=== PATIENT | male | born 1995 | race Caucasian/White ===

== ENCOUNTER 2017-11-08 12:35 | Emergency (ER) ==
[2017-11-08 12:42] VITALS: BP 137/78; TEMP 99; BMI 34.4
[2017-11-08 13:30] LABS: ALBUMIN/GLOBULIN RATIO 1.18; ANION GAP 16.6; BILIRUBIN,TOTAL 0.61 mg/dL (0.00-1.20); BUN/CREATININE RATIO 12.64; CALCIUM 9.3 mg/dL (8.2-10.2); CREATININE 0.87 mg/dL (0.60-1.10); POTASSIUM 3.6 mmol/L (3.5-5.1); TOTAL PROTEIN 7.4 g/dL (6.4-8.2)
[2017-11-08 13:44] LABS: FLU INTERNAL QC INTERNAL QC VALID; RAPID FLU A NEGATIVE (NEGATIVE); RAPID FLU B NEGATIVE (NEGATIVE)
--- NOTE | 2017-11-08 13:46 | DI ---
EXAM: Chest two views HISTORY: Cough COMPARISON: None TECHNIQUE: Two views of the chest were performed FINDINGS: The lungs are clear. There is no pleural effusion or pneumothorax. The heart is normal i n size. The mediastinal contour is normal. There are no acute abnormalities of the bones. IMPRESSION: No acute cardiopulmonary process.
--- NOTE | 2017-11-08 13:56 | CT ---
EXAM: CT abdomen pelvis without contrast HISTORY: Left-sided abdominal pain with nausea/vomiting since yesterday COMPARISON: 09/21/2014 TECHNIQUE: CT abdomen pelvis performed without intravenous contrast. Coronal and sagittal reformatt ed images obtained. FINDINGS: Lung bases clear. No free air. No acute abnormalities of the bones. Heart normal in siz e. Liver appears normal. Evaluation organ parenchyma limited without contrast. Liver appears pete l. Gallbladder appears normal. Pancreas appears normal. Spleen appears normal. Adrenals appear no rmal. Kidneys appear normal. Aorta normal in caliber. Bladder unremarkable. Prostate normal in si ze. No lymphadenopathy or ascites. Minimal fat-containing umbilical hernia. Stomach appears normal . No dilated loops small bowel. Appendix appears normal. Increased submucosal fat deposition in th e right and transverse colon. No inflammatory stranding identified in the abdomen or pelvis. IMPRESSION: 1. No acute abnormality identified in the abdomen or pelvis. 2. Increased submucosal fat deposition in the right and transverse colon, a finding that can be seen in sequela of remote infection or inflammation, such as inflammatory bowel disease.
[2017-11-08 14:07] LABS: BASOPHILS # (AUTO) 0.1 K/uL (0-0.2); BASOPHILS % (AUTO) 0.8 % (0.0-3.0); EOSINOPHILS # (AUTO) 0.5 K/ul (0.0-0.7); EOSINOPHILS % (AUTO) 5.1 % (0.0-7.0); HEMATOCRIT 44.8 % (42.0-52.0); HEMOGLOBIN 15.9 g/dl (14.0-18.0); LYMPHOCYTES # (AUTO) 1.9 K/uL (0.60-3.4); LYMPHOCYTES % (AUTO) 21.3 (10.0-50.0); MEAN CORPUSCULAR HEMOGLOBIN 30.5 pg (27.0-31.0); MEAN CORPUSCULAR HGB CONC 35.5 (31.8-35.4); MONOCYTES # (AUTO) 0.8 K/uL (0.4-2.0); MONOCYTES % (AUTO) 9.3 (0-10); NEUTROPHILS # (AUTO) 5.5 K/ul (2.0-6.9); NEUTROPHILS % (AUTO) 62.5; PLATELET COUNT 216 10^3/uL (140-440); RED BLOOD COUNT 5.21 10^6/ul (4.70-6.10); WHITE BLOOD COUNT 8.82 K/ul (4.2-10.2)
--- NOTE | 2017-11-08 14:27 | ED.PDOC ---
General ED Provider: Dr. CHEIKH LONGO Chief Complaint: Nausea/Vomiting Stated Complaint: ABDOMINAL PAIN Time Seen by Physician: 12:38 Mode of Arrival: Walk-In Information Source: Patient Exam Limitations: No limitations Nursing and Triage Documentation Reviewed and Agree: Yes (SEEN WITH pritesh) GI Complaint Exam - Abdominal Pain Complaint/Exam Onset: Gradual Duration: presentx 1 day not active at the moment Symptoms Are: Resolved Initial Severity: Mild Current Severity: None Location of Pain: Diffuse Character: Reports: Aching Aggravating: Reports: None Alleviating: Reports: None Associated Signs and Symptoms: Reports: Cough. Denies: Diaphoresis, Fever, Chest pain, Dizziness, Back pain, Constipation, Blood in stool, Dysuria, Urinary frequency, Decreased urine output, Decreased appetite, Discharge, Nausea , Vomiting, Diarrhea, Decreased activity AAA Risk Factors: Reports: None Cardiac Risk Factors: Reports: None Testicular Torsion Risk Factors: Reports: None Surgical Obstruction Risk Factors: Reports: None Related Surgical History: Reports: None Abdominal Findings: Present: None Differential Diagnoses: Bowel Obstruction, Constipation, Gastroenteritis Review of Systems - Review Of Systems Constitutional: Reports: No symptoms Eyes: Reports: No symptoms Ears, Nose, Mouth, Throat: Reports: No symptoms Respiratory: Reports: No symptoms Cardiac: Reports: No symptoms GI: Reports: Abdominal pain, Vomiting : Reports: No symptoms Musculoskeletal: Reports: No symptoms Skin: Reports: No symptoms Neurological: Reports: No symptoms Endocrine: Reports: No symptoms Hematologic/Lymphatic: Reports: No symptoms All Other Systems: Reviewed and Negative Past Medical History - Past Medical History Previously Healthy: Yes Endocrine: Reports: None Cardiovascular: Reports: None Respiratory: Reports: None Hematological: Reports: None Gastrointestinal: Reports: None Genitourinary: Reports: None Neuro/Psych: Reports: None Musculoskeletal: Reports: None Cancer: Reports: None - Surgical History General Surgical History: Reports: None - Family History Family History: Reports: None - Social History Smoking Status: Current every day smoker, Heavy tobacco smoker Hx Substance Use: No Alcohol Screening: Occasionally Physical Exam - Physical Exam Appearance: Well-appearing, No pain distress, Well-nourished Eyes: AMARIS, EOMI, Conjunctiva clear ENT: Ears normal, Nose normal, Oropharynx normal Respiratory: Airway patent, Breath sounds clear, Breath sounds equal, Respirations nonlabored Cardiovascular: RRR, Pulses normal, No rub, No murmur GI/: Soft, Nontender, No masses, Bowel sounds normal, No Organomegaly Musculoskeletal: Normal strength, ROM intact, No edema, No calf tenderness Skin: Warm, Dry, Normal color Neurological: Sensation intact, Motor intact, Reflexes intact, Cranial nerves intact, Alert, Oriented Psychiatric: Affect appropriate, Mood appropriate Interpretation - Radiology Interpretation Radiology Interpretation By: Radiologist Radiology Results: No acute changes Critical Care Note - Critical Care Note Total Time (mins): 0 Course - Course Hematology/Chemistry: 11/08/17 13:00 11/08/17 13:00 Orders, Labs, Meds: Lab Review 11/08/17 11/08/17 11/08/17 13:00 13:00 13:14 WBC 8.82 RBC 5.21 Hgb 15.9 Hct 44.8 MCV 86.0 MCH 30.5 MCHC 35.5 H RDW Coeff of Rosalinda 12.4 Plt Count 216 Immature Gran % (Auto) 1.0 Neut % (Auto) 62.5 Lymph % (Auto) 21.3 [place] % (Auto) 9.3 Eos % (Auto) 5.1 Baso % (Auto) 0.8 Immature Gran # (Auto) 0.1 Neut # 5.5 Lymph # 1.9 [place] # 0.8 Eos # 0.5 Baso # 0.1 Sodium 142 Potassium 3.6 Chloride 105 Carbon Dioxide 24 Anion Gap 16.6 BUN 11 Creatinine 0.87 Estimated GFR (MDRD) 111.00 BUN/Creatinine Ratio 12.64 Glucose 100 Calcium 9.3 Total Bilirubin 0.61 AST 19 ALT 24 Alkaline Phosphatase 64 Total Protein 7.4 Albumin 4.0 Globulin 3.4 Albumin/Globulin Ratio 1.18 Influenza A (Rapid) Negative Influenza B (Rapid) Negative Orders Category Date Time Status CBC W/ AUTO DIFF Stat LAB 11/08/17 13:00 Completed COMPREHENSIVE METABOLIC PANEL Stat LAB 11/08/17 13:00 Completed MOLECULAR GROUP A STREP Stat LAB 11/08/17 13:14 Results RAPID FLU A/B Stat LAB 11/08/17 13:14 Completed STREP SCREEN Stat LAB 11/08/17 13:14 Results UA [URINALYSIS C & S IF INDICATED] Stat LAB 11/08/17 12:45 Uncollected CHEST, 2 VIEWS PA & LAT Stat RADS 11/08/17 12:[address] ABDOMEN/PELVIS WO CONTRAST Stat RADS 11/08/17 12:47 Completed Vital Signs: Temp Pulse Resp BP Pulse Ox 11/08/17 12:38 99 F 112 H 18 137/78 98 Departure - Departure Time of Disposition: 14:28 (copy of imagings and x ray given to pt and explianed while pritesh was present. no vomiting in the emergency room ) Disposition: HOME SELF-CARE Discharge Problem: Nausea, Vomiting Abdominal pain Qualifiers: Abdominal location: generalized Qualified Code(s): R10.84 - Generalized abdominal pain Instructions: Abdominal Pain (ED) Condition: Good Pt referred to PMD for follow-up: Yes Allergies/Adverse Reactions: Allergies Penicillins Adverse Reaction (Verified 11/08/17 12:37) Home Medications: Ambulatory Orders 1 [No Reported Medications] 07/07/14
== END 2017-11-08 14:35 | disposition home or self-care (01) ==
LOC: ED 12:35
DX: R11.2 Nausea with vomiting, unspecified (principal); R10.84 Generalized abdominal pain; R05 Cough; F17.210 Nicotine dependence, cigarettes, uncomplicated
CPT/HCPCS: 36415; 80053; 85025; 87651; 87804; 87880; 99283

== ENCOUNTER 2018-01-17 18:29 | Emergency (ER) ==
[2018-01-17 18:29] VITALS: BMI 34.4
[2018-01-17] MEDS ORDERED: DECADRON 4 MG/ML SDV IM STA (19:26)
--- NOTE | 2018-01-17 19:35 | ED.PDOC ---
General ED Provider: Dr. MARYSOL VIRGEN Chief Complaint: Sore Throat Stated Complaint: Thorat pain, ears hurting. no fver or chills Time Seen by Physician: 19:34 Mode of Arrival: Walk-In Information Source: Patient Nursing and Triage Documentation Reviewed and Agree: Yes Reviewed sepsis parameters & appropriate labs ordered?: No System Inflammatory Response Syndrome: Not Applicable Sepsis Protocol: For patient's 13 years and over: Temp is 96.8 and below OR 101 and greater Pulse >90 BPM Resp >20/minute Acutely Altered Mental Status Are patient's symptoms suggestive of a new infection, such as: -Pneumonia -Skin, Soft Tissue -Endocarditis -UTI -Bone, Joint Infection -Implantable Device -Acute Abdominal Infection -Wound Infection -Meningitis -Blood Stream Catheter Infection -Unknown EENT Complaint Exam - Throat Complaint/Exam Symptoms Are: Still present Timimg: Constant Initial Severity: Moderate Current Severity: Moderate Aggravating: Reports: Eating Alleviating: Reports: None Associated Signs and Symptoms: Reports: Dysphagia, Cough, Nasal congestion. Denies: Fever, Drooling, Foreign body sensation, Chills, Wheezing, Hoarseness, Sinus discomfort, Difficulty breathing, Lethargy, Irritability, Decreased activity, Vomiting, Diarrhea, Decreased hearing, Ear drainage Related History: Reports: Similar Episode Uvula Midline: Yes Louisa-tonsillar Fluctuence: No Scarlatinaform Rash Present: No Stridor Present: No Sinus Tenderness Present: No Tonsillar Hypertrophy Present: No Tonsillar Exudate Present: No Louisa-tonsillar Swelling Present: No Adenopathy Present: No Splenomegaly Present: No Differential Diagnoses: Pharyngitis, URI Review of Systems - Review Of Systems Constitutional: Reports: Fever, Malaise, Weakness Eyes: Reports: No symptoms Ears, Nose, Mouth, Throat: Reports: Throat pain Respiratory: Reports: No symptoms Cardiac: Reports: No symptoms GI: Reports: No symptoms : Reports: No symptoms Musculoskeletal: Reports: No symptoms Skin: Reports: No symptoms Neurological: Reports: No symptoms Endocrine: Reports: No symptoms Hematologic/Lymphatic: Reports: No symptoms All Other Systems: Reviewed and Negative Past Medical History - Past Medical History Previously Healthy: Yes Endocrine: Reports: None Cardiovascular: Reports: None Respiratory: Reports: None Hematological: Reports: None Gastrointestinal: Reports: None Genitourinary: Reports: None Neuro/Psych: Reports: None Musculoskeletal: Reports: None Cancer: Reports: None - Surgical History General Surgical History: Reports: None - Family History Family History: Reports: None - Social History Smoking Status: Current every day smoker, Light tobacco smoker Smoking Cessation Counseling Time: > 3 min - 10 min Hx Substance Use: No (smokes marijuana) Alcohol Screening: Occasionally Physical Exam - Physical Exam Appearance: Well-appearing, No pain distress, Well-nourished Eyes: AMARIS, EOMI, Conjunctiva clear ENT: Ears normal, Erythema Respiratory: Airway patent, Breath sounds clear, Breath sounds equal, Respirations nonlabored Cardiovascular: RRR, Pulses normal, No rub, No murmur GI/: Soft, Nontender, No masses, Bowel sounds normal, No Organomegaly Musculoskeletal: Normal strength, ROM intact, No edema, No calf tenderness Skin: Warm, Dry, Normal color Neurological: Sensation intact, Motor intact, Reflexes intact, Cranial nerves intact, Alert, Oriented Psychiatric: Affect appropriate, Mood appropriate Critical Care Note - Critical Care Note Total Time (mins): 15 Course - Course Orders, Labs, Meds: Orders Category Date Time Status MOLECULAR GROUP A STREP Stat LAB 01/17/18 19:26 Uncollected Dexamethasone 4 mg/ml Inj [Decadron 4 mg/ml Sdv] MEDS 01/17/18 19:26 Discontinued 4 mg IM ONCE STA Medications Discontinued Medications Generic Name Dose Route Start Last Admin Trade Name Normanq PRN Reason Stop Dose Admin Dexamethasone Sodium Phosphate 4 mg 01/17/18 19:26 Decadron 4 Mg/Ml Sdv IM 01/17/18 19:27 ONCE STA Vital Signs: Temp Pulse Resp BP Pulse Ox 01/17/18 18:30 98.3 F 105 H 20 154/87 H 98 Departure - Departure Time of Disposition: 20:10 Disposition: HOME SELF-CARE Discharge Problem: Sore throat symptom Instructions: Pharyngitis (ED) Condition: Stable Pt referred to PMD for follow-up: No IPMP verified?: No Additional Instructions: Increase Hydration Tylenol prn Prescriptions: Azithromycin [Zithromax] 250 mg PO DIRECTED #6 tablet Prednisone 10 mg PO BIDWM #14 tablet Allergies/Adverse Reactions: Allergies Penicillins Adverse Reaction (Verified 01/17/18 18:38) Home Medications: Ambulatory Orders Azithromycin [Zithromax] 250 mg PO DIRECTED #6 tablet 01/17/18 Prednisone 10 mg PO BIDWM #14 tablet 01/17/18 Disposition Discussed With: Patient
[2018-01-17 20:50] VITALS: BP 132/86; TEMP 98.5
== END 2018-01-17 20:38 | disposition home or self-care (01) ==
LOC: ED 18:29
DX: J02.9 Acute pharyngitis, unspecified (principal); F17.210 Nicotine dependence, cigarettes, uncomplicated
CPT/HCPCS: 87651; 99283

== ENCOUNTER 2018-01-19 18:00 | Emergency (ER) ==
[2018-01-19 18:09] VITALS: BP 120/76; TEMP 99.9; BMI 36.8
[2018-01-19] MEDS ORDERED: SODIUM CHLORIDE 1,000 ML IV STA (18:17)
[2018-01-19] MEDS ORDERED: ATIVAN IVP STA (18:17)
[2018-01-19] MEDS ORDERED: PROTONIX IV IVP STA (18:33)
--- NOTE | 2018-01-19 18:35 | ED.PDOC ---
General ED Provider: Dr. FANNIE HAMPTON Stated Complaint: i was seen last week for sore throat--i think im having a panic attack--i think i have an abscess--i have reflux Time Seen by Physician: 18:05 Mode of Arrival: Walk-In Information Source: Patient, Family Exam Limitations: No limitations Nursing and Triage Documentation Reviewed and Agree: Yes Reviewed sepsis parameters & appropriate labs ordered?: Yes System Inflammatory Response Syndrome: Not Applicable Sepsis Protocol: For patient's 13 years and over: Temp is 96.8 and below OR 101 and greater Pulse >90 BPM Resp >20/minute Acutely Altered Mental Status Are patient's symptoms suggestive of a new infection, such as: -Pneumonia -Skin, Soft Tissue -Endocarditis -UTI -Bone, Joint Infection -Implantable Device -Acute Abdominal Infection -Wound Infection -Meningitis -Blood Stream Catheter Infection -Unknown <FANNIE HAMPTON - Last Filed: 01/19/18 18:32> ED Provider: Dr. LUIS ANTONIO LOVELL Sepsis Protocol: For patient's 13 years and over: Temp is 96.8 and below OR 101 and greater Pulse >90 BPM Resp >20/minute Acutely Altered Mental Status Are patient's symptoms suggestive of a new infection, such as: -Pneumonia -Skin, Soft Tissue -Endocarditis -UTI -Bone, Joint Infection -Implantable Device -Acute Abdominal Infection -Wound Infection -Meningitis -Blood Stream Catheter Infection -Unknown <LUIS ANTONIO LOVELL - Last Filed: 01/19/18 20:56> Chief Complaint: Psychiatric Complaint EENT Complaint Exam - Throat Complaint/Exam Onset/Duration: 4 days Symptoms Are: Still present Timimg: Constant Initial Severity: Mild Current Severity: Moderate Aggravating: Reports: Eating Alleviating: Reports: None Associated Signs and Symptoms: Reports: Foreign body sensation Uvula Midline: Yes Louisa-tonsillar Fluctuence: No Scarlatinaform Rash Present: No Stridor Present: No Sinus Tenderness Present: No Tonsillar Hypertrophy Present: No Tonsillar Exudate Present: No Louisa-tonsillar Swelling Present: No Adenopathy Present: No Splenomegaly Present: No Differential Diagnoses: Tonsillitis, Other <FANNIE HAMPTON - Last Filed: 01/19/18 18:32> Review of Systems - Review Of Systems Constitutional: Reports: No symptoms Eyes: Reports: No symptoms Ears, Nose, Mouth, Throat: Reports: Throat pain, Throat swelling Respiratory: Reports: No symptoms Cardiac: Reports: No symptoms GI: Reports: No symptoms : Reports: No symptoms Musculoskeletal: Reports: No symptoms Skin: Reports: No symptoms Neurological: Reports: No symptoms Endocrine: Reports: No symptoms Hematologic/Lymphatic: Reports: No symptoms All Other Systems: Reviewed and Negative <MEMOFANNIE Last Filed: 01/19/18 18:32> Past Medical History - Past Medical History Previously Healthy: Yes Endocrine: Reports: None Cardiovascular: Reports: None Respiratory: Reports: None Hematological: Reports: None Gastrointestinal: Reports: None Genitourinary: Reports: None Neuro/Psych: Reports: None Musculoskeletal: Reports: None Cancer: Reports: None - Surgical History General Surgical History: Reports: None - Family History Family History: Reports: None - Social History Smoking Status: Current every day smoker, Light tobacco smoker Hx Substance Use: Yes (smoke pot) Alcohol Screening: Occasionally - Immunizations Tetanus Shot up to Date: Yes <FANNIE HAMPTON Last Filed: 01/19/18 18:32> Physical Exam - Physical Exam Appearance: Well-appearing, No pain distress, Well-nourished Pain Distress: Moderate Eyes: AMARIS, EOMI, Conjunctiva clear ENT: Ears normal, Nose normal, Oropharynx normal Neck: Supple Respiratory: Airway patent, Breath sounds clear, Breath sounds equal, Respirations nonlabored Cardiovascular: RRR, Pulses normal, No rub, No murmur GI/: Soft Musculoskeletal: Normal strength Skin: Warm, Dry, Normal color Neurological: Sensation intact, Motor intact, Reflexes intact, Cranial nerves intact, Alert, Oriented Psychiatric: Affect appropriate, Mood appropriate, Anxious <FANNIE HAMPTON Last Filed: 01/19/18 18:32> Interpretation - Radiology Interpretation Radiology Interpretation By: Radiologist Radiology Results: Negative Exam Interpreted: CT Scan (soft tissue neck. ) <LUIS ANTONIO LOVELL - Last Filed: 01/19/18 20:56> Physician Notification - Case Discussed Physician Notified: dr lovell Time of Notification: 19:00 <FANNIE HAMPTON Last Filed: 01/19/18 18:32> Critical Care Note - Critical Care Note Total Time (mins): 0 <LUIS ANTONIO LOVELL - Last Filed: 01/19/18 20:56> Course - Course Orders, Labs, Meds: Orders Category Date Time Status NPO REMINDER: IMAGING ONCE CARE 01/19/18 18:18 Active ED IV/MEDIPORT/POWERPORT .ONCE EMERGENCY 01/19/18 18:17 Active CBC W/ AUTO DIFF Stat LAB 01/19/18 18:16 Ordered COMPREHENSIVE METABOLIC PANEL Stat LAB 01/19/18 18:16 Ordered FREE T4 (FREE THYROXINE) Stat LAB 01/19/18 18:22 Ordered TSH [THYROID STIMULATING HORMONE] Stat LAB 01/19/18 18:22 Ordered 0.9 % Sodium Chloride [Saline Flush] MEDS 01/19/18 18:17 Ordered 1 syr IVF PRN PRN Lorazepam Inj [Ativan] MEDS 01/19/18 18:17 Discontinued 1 mg IVP ONCE STA Sodium Chloride 0.9% [Sodium Chloride] 1,000 ml MEDS 01/19/18 18:17 Active IV 500 mls/hr CT SOFT TISSUE NECK W/WO CONT Stat RADS 01/19/18 18:17 Ordered Medications Generic Name Dose Route Start Last Admin Trade Name Freq PRN Reason Stop Dose Admin Sodium Chloride 1,000 mls @ 500 mls/hr 01/19/18 18:17 Sodium Chloride IV 01/19/18 20:16 .Q2H STA Sodium Chloride 1 syr 01/19/18 18:17 Saline Flush IVF PRN PRN To flush IV Discontinued Medications Generic Name Dose Route Start Last Admin Trade Name Freq PRN Reason Stop Dose Admin Lorazepam 1 mg 01/19/18 18:17 Ativan IVP 01/19/18 18:18 ONCE STA Vital Signs: Temp Pulse Resp BP Pulse Ox 01/19/18 18:02 99.9 F H 116 H 16 120/76 98 <FANNIE HAMPTON - Last Filed: 01/19/18 18:32> - Course Orders, Labs, Meds: Orders Category Date Time Status NPO REMINDER: IMAGING ONCE CARE 01/19/18 18:18 Active ED IV/MEDIPORT/POWERPORT .ONCE EMERGENCY 01/19/18 18:17 Active CBC W/ AUTO DIFF Stat LAB 01/19/18 18:37 Received COMPREHENSIVE METABOLIC PANEL Stat LAB 01/19/18 18:37 Received FREE T4 (FREE THYROXINE) Stat LAB 01/19/18 18:22 Ordered TSH [THYROID STIMULATING HORMONE] Stat LAB 01/19/18 18:22 Ordered 0.9 % Sodium Chloride [Saline Flush] MEDS 01/19/18 18:17 Ordered 1 syr IVF PRN PRN Lorazepam Inj [Ativan] MEDS 01/19/18 18:45 Discontinued 1 mg IM ONCE STA Lorazepam Inj [Ativan] MEDS 01/19/18 18:46 Discontinued 1 mg IM ONCE STA Pantoprazole Sodium [Protonix IV] MEDS 01/19/18 18:33 Discontinued 40 mg IVP ONCE STA Sodium Chloride 0.9% [Sodium Chloride] 1,000 ml MEDS 01/19/18 18:17 Discontinued IV 500 mls/hr CT SOFT TISSUE NECK W/O CONTR Stat RADS 01/19/18 19:50 Completed Medications Generic Name Dose Route Start Last Admin Trade Name Freq PRN Reason Stop Dose Admin Sodium Chloride 1 syr 01/19/18 18:17 Saline Flush IVF PRN PRN To flush IV Discontinued Medications Generic Name Dose Route Start Last Admin Trade Name Freq PRN Reason Stop Dose Admin Sodium Chloride 1,000 mls @ 500 mls/hr 01/19/18 18:17 Sodium Chloride IV 01/19/18 20:16 .Q2H STA Lorazepam 1 mg 01/19/18 18:46 01/19/18 18:52 Ativan IM 01/19/18 18:47 2 mg ONCE STA Administration Lorazepam 1 mg 01/19/18 18:45 01/19/18 18:54 Ativan IM 01/19/18 18:46 1 mg ONCE STA Administration Pantoprazole Sodium 40 mg 01/19/18 18:33 Protonix Iv IVP 01/19/18 18:34 ONCE STA Vital Signs: Temp Pulse Resp BP Pulse Ox 01/19/18 18:02 99.9 F H 116 H 16 120/76 98 <LUIS ANTONIO LOVELL - Last Filed: 01/19/18 20:56> Departure <FANNIE HAMPTON - Last Filed: 01/19/18 18:32> - Departure Time of Disposition: 20:46 Pt referred to PMD for follow-up: Yes IPMP verified?: No Disposition Discussed With: Patient, Family <LUIS ANTONIO LOVELL - Last Filed: 01/19/18 20:56> - Departure Disposition: HOME SELF-CARE Discharge Problem: Reflux esophagitis Pharyngitis Qualifiers: Pharyngitis/tonsillitis etiology: unspecified etiology Qualified Code(s): J02.9 - Acute pharyngitis, unspecified Instructions: Pharyngitis (ED) Condition: Stable Additional Instructions: Follow up with PCP in 2 days. Take Tylenol as needed for pain or fever Prescriptions: Pantoprazole Sodium [Protonix] 40 mg PO QDAC #30 tablet. Allergies/Adverse Reactions: Allergies Penicillins Adverse Reaction (Verified 01/19/18 18:11) Home Medications: Ambulatory Orders Azithromycin [Zithromax] 250 mg PO DIRECTED #6 tablet 01/17/18 Prednisone 10 mg PO BIDWM #14 tablet 01/17/18 Pantoprazole Sodium [Protonix] 40 mg PO QDAC #30 tablet. 01/19/18
[2018-01-19] MEDS ORDERED: ATIVAN IM STA ×2 (18:45→18:46)
--- NOTE | 2018-01-19 20:26 | CT ---
Exam: CT of the neck without contrast History: Back pain with questionable abscess Technique: [address] of the neck without intravascular contrast FINDINGS: Technically limited in the absence of intravascular contrast. The area concern has not be en designated. The pharynx and trachea appear normal. Normal esophagus and prevertebral soft tissue s. Normal parapharyngeal fat. Normal submandibular and parotid and thyroid glands. The lung apices are clear. Vascular structures appear normal by noncontrast CT. No inflammatory changes are seen i n the superficial or deep fat planes. No pathologic lymph node enlargement. No significant abnormal ities of the skeleton. Impression: 1. No abnormalities of the neck.
[2018-01-19] MEDS ORDERED: PROTONIX PO STA (20:49)
== END 2018-01-19 21:20 | disposition home or self-care (01) ==
LOC: ED 18:00
DX: J02.9 Acute pharyngitis, unspecified (principal); K21.0 Gastro-esophageal reflux disease with esophagitis; F17.210 Nicotine dependence, cigarettes, uncomplicated
CPT/HCPCS: 36415; 96372; 99283

== ENCOUNTER 2018-01-24 11:25 | Outpatient (CLI) ==
--- NOTE | 2018-01-24 12:02 | DI ---
EXAM: PA and lateral views of the chest HISTORY: Cough. COMPARISON: Chest x-ray 11/08/2017 FINDINGS: The cardiomediastinal silhouette is normal. There is no pneumothorax or pleural effusion. There is no consolidation, nodule or mass. The osseous structures are unremarkable. IMPRESSION: No acute cardiopulmonary process
== END 2018-01-24 11:26 | disposition home or self-care (01) ==
LOC: CAR 11:25
PROVIDERS: ATTEND Nurse Practitioner Family
DX: R07.89 Other chest pain (principal); R05 Cough
CPT/HCPCS: 93005; 93010

== ENCOUNTER 2018-01-29 08:49 | Outpatient (CLI) | END 2018-01-29 08:50 | disposition home or self-care (01) | LOC: CAR 08:49 | PROVIDERS: ATTEND Nurse Practitioner Family | DX: I49.8 Other specified cardiac arrhythmias (principal) | CPT/HCPCS: 93227 ==

== ENCOUNTER 2018-02-15 20:34 | Emergency (ER) ==
[2018-02-15 20:43] VITALS: BP 136/90; TEMP 98.3; BMI 33.5
[2018-02-15] MEDS ORDERED: TORADOL IM STA (21:48)
--- NOTE | 2018-02-15 22:34 | ED.PDOC ---
General ED Provider: Dr. MARYSOL VIRGEN Chief Complaint: Penile Problem Stated Complaint: pain redness of the Penis, was started on the bactrim for URTi. no abdominal pain,. no nausea or vomiting. Time Seen by Physician: 20:10 Mode of Arrival: Walk-In Information Source: Patient Primary Care Provider: AYSHA BRASHER Nursing and Triage Documentation Reviewed and Agree: Yes Reviewed sepsis parameters & appropriate labs ordered?: No System Inflammatory Response Syndrome: Not Applicable Sepsis Protocol: For patient's 13 years and over: Temp is 96.8 and below OR 101 and greater Pulse >90 BPM Resp >20/minute Acutely Altered Mental Status Are patient's symptoms suggestive of a new infection, such as: -Pneumonia -Skin, Soft Tissue -Endocarditis -UTI -Bone, Joint Infection -Implantable Device -Acute Abdominal Infection -Wound Infection -Meningitis -Blood Stream Catheter Infection -Unknown Complaint Exam - Complaint/Exam Symptoms Are: Still present Timing: Constant Initial Severity: Mild Current Severity: Mild Location of Pain: Reports: Penis Character: Reports: Burning Aggravating: Reports: Voiding Alleviating: Reports: None Associated Signs and Symptoms: Reports: Penile swelling. Denies: Diaphoresis, Back pain, Fever, Hematuria, Dysuria, Constipation, Blood in stool, Rectal pain , Appetite change, Nausea, Vomiting, Penile discharge, Decreased urine output, Increased urine frequency, Increased thirst, Decreased activity, Lethargy, Scrotal pain, Scrotal swelling, Abdominal Pain Related History: Reports: Similar episode (remembers having similar problem last time he took Bactrim) Testicular Torsion Risk Factors: Reports: None Surgical Obstruction Risk Factors: Reports: None Related Surgical History: Reports: None Abdominal Findings: Absent: Pulsatile mass, Abdominal distention, Unequal femoral pulses, Rebound tenderness Differential Diagnoses: Paraphimosis Review of Systems - Review Of Systems Constitutional: Reports: No symptoms Eyes: Reports: No symptoms Ears, Nose, Mouth, Throat: Reports: No symptoms Respiratory: Reports: No symptoms Cardiac: Reports: No symptoms GI: Reports: No symptoms : Reports: No symptoms Musculoskeletal: Reports: No symptoms Skin: Reports: No symptoms Neurological: Reports: No symptoms Endocrine: Reports: No symptoms Hematologic/Lymphatic: Reports: No symptoms All Other Systems: Reviewed and Negative Past Medical History - Past Medical History Previously Healthy: Yes Endocrine: Reports: None Cardiovascular: Reports: None Respiratory: Reports: None Hematological: Reports: None Gastrointestinal: Reports: None Genitourinary: Reports: None Neuro/Psych: Reports: None Musculoskeletal: Reports: None Cancer: Reports: None - Surgical History General Surgical History: Reports: None - Family History Family History: Reports: None - Social History Smoking Status: Current every day smoker, Heavy tobacco smoker Smoking Cessation Counseling Time: > 10 min Hx Substance Use: Yes (smoke pot) Alcohol Screening: Occasionally - Immunizations Tetanus Shot up to Date: Yes Physical Exam - Physical Exam Appearance: Well-appearing, No pain distress, Well-nourished Eyes: AMARIS, EOMI, Conjunctiva clear ENT: Ears normal, Nose normal, Oropharynx normal Respiratory: Airway patent, Breath sounds clear, Breath sounds equal, Respirations nonlabored Cardiovascular: RRR, Pulses normal, No rub, No murmur GI/: Soft, Nontender, No masses, Bowel sounds normal, No Organomegaly Musculoskeletal: Normal strength, ROM intact, No edema, No calf tenderness Skin: Warm, Dry, Normal color Neurological: Sensation intact, Motor intact, Reflexes intact, Cranial nerves intact, Alert, Oriented Psychiatric: Affect appropriate, Mood appropriate Interpretation - Radiology Interpretation Radiology Interpretation By: Radiologist Radiology Results: Negative Exam Interpreted: CT Scan - EKG Interpretation Time of EKG #1: 23:15 Rate: Normal Rhythm: Sinus Ectopy: None Jane [place]: NL ST Segment: Normal Re-Evaluation - Re-Evaluation Time of Re-Evaluation: 23:33 Status: Improved Critical Care Note - Critical Care Note Total Time (mins): 30 Course - Course Hematology/Chemistry: 02/15/18 22:00 02/15/18 22:00 Orders, Labs, Meds: Lab Review 02/15/18 02/15/18 02/15/18 21:50 22:00 22:00 WBC 15.45 H RBC 4.98 Hgb 15.1 Hct 43.3 MCV 86.9 MCH 30.3 MCHC 34.9 RDW Coeff of Rosalinda 12.8 Plt Count 143 Immature Gran % (Auto) 1.3 Neut % (Auto) 70.6 Lymph % (Auto) 17.5 Mchenry % (Auto) 9.1 Eos % (Auto) 1.0 Baso % (Auto) 0.5 Immature Gran # (Auto) 0.2 Neut # (Auto) 10.9 H Lymph # (Auto) 2.7 Mchenry # (Auto) 1.4 Eos # (Auto) 0.2 Baso # (Auto) 0.1 Puncture Site O2 Saturation ABG pH ABG pCO2 ABG pO2 ABG HCO3 ABG Total CO2 ABG Base Excess Branden Test FiO2 % Sodium 139 Potassium 4.4 Chloride 110 H Carbon Dioxide 13 L Anion Gap 20.4 BUN 22 H Creatinine 1.03 Estimated GFR (MDRD) 90.00 BUN/Creatinine Ratio 21.35 Glucose 94 Calcium 9.5 Total Bilirubin 0.4 AST 27 ALT 32 Alkaline Phosphatase 65 Total Protein 7.5 Albumin 4.1 Globulin 3.4 Albumin/Globulin Ratio 1.21 Urine Color Yellow Urine Clarity Clear Urine pH 6.0 Ur Specific [place] >=1.030 Urine Protein 1+ Urine Glucose (UA) Negative Urine Ketones Negative Urine Blood Trace-intact Urine Nitrite Negative Urine Bilirubin Negative Urine Urobilinogen 1.0 Ur Leukocyte Esterase Negative Urine Microscopic RBC 2-5 Urine Microscopic WBC 0-2 Ur Squamous Epith Cells 0-2 Calcium Oxalate Crystal Trace Urine Bacteria Trace Urine Mucus Trace 02/15/18 22:44 WBC RBC Hgb Hct MCV MCH MCHC RDW Coeff of Rosalinda Plt Count Immature Gran % (Auto) Neut % (Auto) Lymph % (Auto) Mchenry % (Auto) Eos % (Auto) Baso % (Auto) Immature Gran # (Auto) Neut # (Auto) Lymph # (Auto) Mchenry # (Auto) Eos # (Auto) Baso # (Auto) Puncture Site Lr O2 Saturation 98.0 ABG pH 7.458 H ABG pCO2 33.3 L ABG pO2 95.0 ABG HCO3 23.6 ABG Total CO2 25 ABG Base Excess 0 Branden Test + FiO2 % 21.0 Sodium Potassium Chloride Carbon Dioxide Anion Gap BUN Creatinine Estimated GFR (MDRD) BUN/Creatinine Ratio Glucose Calcium Total Bilirubin AST ALT Alkaline Phosphatase Total Protein Albumin Globulin Albumin/Globulin Ratio Urine Color Urine Clarity Urine pH Ur Specific [place] Urine Protein Urine Glucose (UA) Urine Ketones Urine Blood Urine Nitrite Urine Bilirubin Urine Urobilinogen Ur Leukocyte Esterase Urine Microscopic RBC Urine Microscopic WBC Ur Squamous Epith Cells Calcium Oxalate Crystal Urine Bacteria Urine Mucus Orders Category Date Time Status ABG DRAW REQUEST Stat CARDIO 02/15/18 22:44 Completed EKG-(ED ONLY) Stat CARDIO 02/15/18 23:32 Ordered ED IV/MEDIPORT/POWERPORT .ONCE EMERGENCY 02/15/18 22:47 Active ABG Stat LAB 02/15/18 22:44 Completed CBC W/ AUTO DIFF Stat LAB 02/15/18 22:00 Completed COMPREHENSIVE METABOLIC PANEL Stat LAB 02/15/18 22:00 Completed UA [URINALYSIS C & S IF INDICATED] Stat LAB 02/15/18 21:50 Completed 0.9 % Sodium Chloride [Saline Flush] MEDS 02/15/18 22:47 Ordered 1 syr IVF PRN PRN Ketorolac Tromethamine [Toradol] MEDS 02/15/18 21:48 Discontinued 30 mg IM ONCE STA Sodium Chloride 0.9% [Sodium Chloride] 1,000 ml MEDS 02/15/18 23:00 Ordered IV 50 mls/hr CT ABDOMEN/PELVIS WO CONTRAST Stat RADS 02/15/18 22:32 Completed Medications Generic Name Dose Route Start Last Admin Trade Name Freq PRN Reason Stop Dose Admin Sodium Chloride 1,000 mls @ 50 mls/hr 02/15/18 23:00 Sodium Chloride IV .Q20H ANNI Sodium Chloride 1 syr 02/15/18 22:47 Saline Flush IVF PRN PRN To flush IV Discontinued Medications Generic Name Dose Route Start Last Admin Trade Name Freq PRN Reason Stop Dose Admin Ketorolac Tromethamine 30 mg 02/15/18 21:48 02/15/18 22:17 Toradol IM 02/15/18 21:49 30 mg ONCE STA Administration Vital Signs: Temp Pulse Resp BP Pulse Ox 02/15/18 21:20 112 H 20 97 02/15/18 20:35 98.3 F 120 H 24 136/90 98 Departure - Departure Time of Disposition: 23:33 Disposition: HOME SELF-CARE Discharge Problem: Medication reaction Qualifiers: Encounter type: initial encounter Qualified Code(s): T88.7XXA - Unspecified adverse effect of drug or medicament, initial encounter Instructions: Antibiotic Medication Allergy (ED) Condition: Stable Pt referred to PMD for follow-up: Yes IPMP verified?: No Additional Instructions: STOP BACTRIM INCREASE HYDRATION F/U WITH PMD IN 2 DAYS Allergies/Adverse Reactions: Allergies Penicillins Adverse Reaction (Verified 02/15/18 20:42) Disposition Discussed With: Patient, Family
[2018-02-15] MEDS ORDERED: SODIUM CHLORIDE 1,000 ML IV SCH (23:00)
--- NOTE | 2018-02-15 23:16 | CT ---
EXAM: CT of the abdomen and pelvis without contrast. HISTORY: Abdominal pain. PROCEDURE: Contiguous axial CT images of the abdomen and pelvis without contrast with coronal and sa gittal reformats. FINDINGS: The dome of the liver is not visualized secondary to termination of image acquisition. The visualized portion of the liver is normal in appearance. The gallbladder, pancreas, spleen, adrenal glands and kidneys are normal in appearance. The abdominal aorta is normal in appearance. The visual ized loops of bowel and appendix are normal in appearance. No free fluid or free air in the abdomen o r pelvis. The bladder is minimally filled which limits the evaluation. The seminal vesicles and pros cohen gland are unremarkable. The bones and soft tissues are unremarkable. Impression: Negative CT of the abdomen and pelvis.
[2018-02-15] MEDS ORDERED: SODIUM CHLORIDE 1,000 ML IV STA (23:40)
== END 2018-02-16 00:47 | disposition home or self-care (01) ==
LOC: ED 20:34
DX: T88.7XXA Unspecified adverse effect of drug or medicament, initial encounter (principal); N48.89 Other specified disorders of penis; F17.210 Nicotine dependence, cigarettes, uncomplicated
CPT/HCPCS: 36415; 80053; 81001; 82803; 85025; 93005; 93010; 96360; 96372; 99283

== ENCOUNTER 2018-04-23 15:14 | Outpatient (CLI) | END 2018-04-23 15:15 | disposition home or self-care (01) | LOC: RHC-LAB 15:14 | PROVIDERS: ATTEND Nurse Practitioner Family | DX: R30.0 Dysuria (principal) | CPT/HCPCS: 87800 ==

== ENCOUNTER 2018-05-06 13:56 | Outpatient (CLI) | END 2018-05-06 13:57 | disposition home or self-care (01) | LOC: RHC-LAB 13:56 | PROVIDERS: ATTEND Nurse Practitioner Family | DX: J02.9 Acute pharyngitis, unspecified (principal) | CPT/HCPCS: 87651 ==